=== PATIENT | male | born 1950 | race Caucasian/White ===

== ENCOUNTER 2017-09-24 09:57 | Emergency (ER) | payer MEDICARE, OTHER ==
[~2017-09-24] VITALS: Ht 180.3 cm; Wt 103.0 kg
[~2017-09-24 09:57] MED LIST: ASPI325T80 PO; DIAZ5TAB PO; LISI-170 PO; OXYC-302 PO; TRAM50TA2 PO
[2017-09-24 10:04] VITALS: BP 166/90
[2017-09-24] MEDS ORDERED: METHOCARBAMOL 750 MG TABLET PO ONE (12:00)
[2017-09-24] MEDS ORDERED: METHOCARBAMOL 750 MG TABLET ONE ×2 (12:04→12:05)
== END 2017-09-24 13:45 | disposition home or self-care (01) ==
LOC: ED 13:42
DX: M54.41 Lumbago with sciatica, right side (principal); F17.200 Nicotine dependence, unspecified, uncomplicated
CPT/HCPCS: 72110; 72220; 99284; J7512